=== PATIENT | male | born 2005 | race Two or more races ===

== ENCOUNTER 2024-02-13 13:54 | Emergency (ER) | payer OTHER ==
[~2024-02-13] VITALS: Ht 180.3 cm; Wt 95.3 kg
[2024-02-13 15:56] VITALS: BP 141/62; TEMP 98.2; O2SAT 99
== END 2024-02-13 15:56 | disposition home or self-care (01) ==
LOC: ER 14:00
DX: S93.401A Sprain of unspecified ligament of right ankle, initial encounter (principal); W22.8XXA Striking against or struck by other objects, initial encounter; Y93.89 Activity, other specified; Y92.89 Other specified places as the place of occurrence of the external cause; Y99.8 Other external cause status
CPT/HCPCS: 73610-TC; 73630-TC